=== PATIENT | male | born 1955 | race Caucasian/White ===

== ENCOUNTER 2022-01-04 00:23 | Inpatient (IN) | payer MEDICARE, OTHER ==
[~2022-01-04] VITALS: Ht 175.3 cm; Wt 72.6 kg
[2022-01-04] MEDS ORDERED: THIA100T74 PO (01:05)
[2022-01-04] MEDS ORDERED: LEVE500T20 PO (01:05)
[2022-01-04] MEDS ORDERED: FOLI1TAB94 PO (01:05)
[2022-01-04] MEDS ORDERED: HYDR50CA5 PO (01:05)
[2022-01-04] MEDS ORDERED: QUET50TA PO (01:05)
[2022-01-04] MEDS ORDERED: LISI40TA13 PO (01:05)
[2022-01-04] MEDS ORDERED: DISU250T7 PO (01:05)
[2022-01-04] MEDS ORDERED: MAGNESIUM HYDROXIDE 30 ML LIQUID UDC PO PRN (01:30)
[2022-01-04] MEDS ORDERED: MAG HYDROX/AL HYDROX/SIMETH 30 ML LIQUID UDC PO PRN (01:30)
--- NOTE | 2022-01-04 01:45 | NUR ---
Report given to Rebecca MCMULLEN ([facility]).
--- NOTE | 2022-01-04 02:00 | NUR ---
Patient transferred to [facility] room 145.
[2022-01-04] MEDS: LORAZEPAM 1 MG TABLET PO PRN ×2 (02:17→20:11)
[2022-01-04 02:56] VITALS: BP 122/81
--- NOTE | 2022-01-04 03:00 | NUR ---
GPS ADMISSION NOTE: Patient is a 66 year old male brought to [facility] by ambulance from [facility], on a 5150 for GD. Per hold, the patient was barricading himself in an apartment, intoxicated, covered in urine and living in deplorable conditions. Its reported that the patient was eating spoiled food with maggots and unable to verbalize a plan of care for himself. Upon face to face evaluation, the patient presents as unkept and disheveled. When talking to this television script writer, his speech was tangental and the patient had poor insight to the situation that brought him here. 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 There is no reported support system. 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 A patient Rights Handbook and Advisement were provided , along with a shower and orientation to the unit. Safety Stratiges are in place and continuing to monitor for increase of delusions and patient compliance. No acute distress noted at this time.
[2022-01-04 08:03] VITALS: BP 137/93
[2022-01-04] MEDS: NICOTINE 21 MG/24HR PATCH TD SCH (09:10)
--- NOTE | 2022-01-04 10:00 | NUR ---
called chief communications officer podiatry Dr. Mcnair @[phone] for consult.
[2022-01-04] MEDS: levETIRAcetam 500 MG TABLET PO SCH ×2 (12:23→17:00)
[2022-01-04] MEDS: LISINOPRIL 20 MG TABLET PO SCH (12:23)
[2022-01-04 16:08] VITALS: BP 141/91
[2022-01-04] MEDS: DIVALPROEX ER 500 MG TAB.SR.24H PO SCH (17:01)
[2022-01-04] MEDS: risperiDONE 1 MG TABLET PO SCH ×2 (17:02→20:11)
[2022-01-04] MEDS: QUETIAPINE FUMARATE 100 MG TABLET PO SCH (20:11)
[2022-01-04 21:01] VITALS: BP 143/89
--- NOTE | 2022-01-05 06:10 | NUR ---
Received the patient in the day room. Hyperverbal , tangental and having difficulty staying focused when being asked a question , or engaging in basic conversation. The patient was ambulating with a walker and gait is noted as unsteady. During the night, this patient was incontinent and soiled his bed. At that time, total assistance was needed. Sleep hours were 5.45 . Multiple requests were made during the night for snacks. This curriculum writer provided them d/t the fact the patient is underweight. Safety Stratiges are in place. The patient has difficulty with all of his ADLS.
[2022-01-05 07:37] LABS: BILIRUBIN,TOTAL 0.2 mg/dL (0.2-1.0); CREATININE 1.3 mg/dL (0.6-1.3); POTASSIUM 4.8 mmol/L (3.5-5.1); TOTAL PROTEIN, SERUM 6.8 g/dL (6.4-8.2)
[2022-01-05 07:49] VITALS: BP 114/81
[2022-01-05] MEDS: risperiDONE 1 MG TABLET PO SCH ×2 (09:51→20:56)
[2022-01-05] MEDS: THIAMINE HCL 100 MG TABLET PO SCH (09:51)
[2022-01-05] MEDS: LISINOPRIL 20 MG TABLET PO SCH (09:52)
[2022-01-05] MEDS: levETIRAcetam 500 MG TABLET PO SCH ×2 (09:52→16:50)
[2022-01-05] MEDS: NICOTINE 21 MG/24HR PATCH TD SCH (09:53)
[2022-01-05] MEDS: DIVALPROEX ER 500 MG TAB.SR.24H PO SCH (09:53)
[2022-01-05] MEDS: LORAZEPAM 1 MG TABLET PO PRN ×2 (10:25→17:14)
[2022-01-05] MEDS: FOLIC ACID 1 MG TABLET PO SCH (10:29)
[2022-01-05 16:13] VITALS: BP 143/82
--- NOTE | 2022-01-05 16:19 | NUR ---
Patient remains with delusional thoughts, making loose association statements, A&Ox2 with confusion noted. Needs constant reality checks. Med compliant. ambulating in hallway with FWW, encouraged to attend in group activity and participated , care rounding done .
[2022-01-05 19:49] VITALS: BP 139/80
[2022-01-05] MEDS: QUETIAPINE FUMARATE 100 MG TABLET PO SCH (20:56)
--- NOTE | 2022-01-06 06:15 | NUR ---
Received patient in the bed where he has spent the entire day. This sign writer hand encouraged the patient to get up and come to the day room, use the bathroom. ETC.. A FWW provided with standby assist. Patient ate snack and watched some TV. This sign writer hand was unable to engage in any meaningful conversation with this patient d/t his inability to control his tangental, rambling and nonsensical verbal speech content. All needs met and Safety Stratiges are in place. The patient has poor insight to his situation and requires assistance with all ADLs.
[2022-01-06 08:03] VITALS: BP 94/61
[2022-01-06] MEDS: LISINOPRIL 20 MG TABLET PO SCH (09:00)
[2022-01-06] MEDS: DIVALPROEX ER 500 MG TAB.SR.24H PO SCH (09:55)
[2022-01-06] MEDS: levETIRAcetam 500 MG TABLET PO SCH ×2 (09:58→16:38)
[2022-01-06] MEDS: FOLIC ACID 1 MG TABLET PO SCH (09:58)
[2022-01-06] MEDS: NICOTINE 21 MG/24HR PATCH TD SCH (09:58)
[2022-01-06] MEDS: THIAMINE HCL 100 MG TABLET PO SCH (09:58)
[2022-01-06] MEDS: risperiDONE 1 MG TABLET PO SCH (09:59)
--- NOTE | 2022-01-06 15:28 | NUR ---
Received patient is alert and oriented x3, isolative withdrawn stay in bed most of shift, uses urinal to void in bed. compliant with all po medication,poor insight and poor judgement. asking for books to read in bed ,denies any HI/SI.refused to attend in group activity and participated , will continue close monitoring.
[2022-01-06 16:09] VITALS: BP 108/78
[2022-01-06 19:54] VITALS: BP 122/83
[2022-01-06] MEDS: risperiDONE 2 MG TABLET PO SCH (20:10)
[2022-01-06] MEDS: QUETIAPINE FUMARATE 100 MG TABLET PO SCH (20:10)
[2022-01-06] MEDS ORDERED: risperiDONE 2 MG TABLET PO SCH ×2 (21:00)
[2022-01-06] MEDS: LORAZEPAM 1 MG TABLET PO PRN (21:18)
[2022-01-07] MEDS: ZOLPIDEM 5 MG TABLET PO PRN (00:48)
[2022-01-07 07:50] VITALS: BP 108/72
[2022-01-07 07:55] LABS: ALANINE AMINOTRANSFERASE 30 U/L (16-63); ALKALINE PHOSPHATASE 50 U/L (50-136); ASPARTATE AMINOTRANSFERASE < 5 U/L (15-37); BILIRUBIN,TOTAL 0.2 mg/dL (0.2-1.0); CARBON DIOXIDE 27 mmol/L (21-32); CHLORIDE 105 mmol/L (98-107); CREATININE 1.3 mg/dL (0.6-1.3); GLUCOSE 102 mg/dL (74-106); TOTAL PROTEIN, SERUM 7.2 g/dL (6.4-8.2); UREA NITROGEN, BLOOD 25 mg/dL (7-18)
[2022-01-07] MEDS: risperiDONE 2 MG TABLET PO SCH ×2 (08:52→20:28)
[2022-01-07] MEDS: NICOTINE 21 MG/24HR PATCH TD SCH (08:53)
[2022-01-07] MEDS: DIVALPROEX ER 500 MG TAB.SR.24H PO SCH (08:53)
[2022-01-07] MEDS: THIAMINE HCL 100 MG TABLET PO SCH (08:53)
[2022-01-07] MEDS: levETIRAcetam 500 MG TABLET PO SCH (08:54)
[2022-01-07] MEDS: FOLIC ACID 1 MG TABLET PO SCH (08:54)
[2022-01-07] MEDS: LISINOPRIL 20 MG TABLET PO SCH (08:54)
[2022-01-07] MEDS ORDERED: risperiDONE 2 MG TABLET PO SCH (09:00)
[2022-01-07] MEDS: LORAZEPAM 1 MG TABLET PO PRN (10:09)
[2022-01-07] MEDS: levETIRAcetam 250 MG TABLET PO SCH (16:09)
--- NOTE | 2022-01-07 16:24 | NUR ---
SHAVON Initial Discharge Note: Pt currently resides at [address] [place] [address] ([phone]). Pt states he wants to return to his apartment. Pt states he has a human services professional named Joie ([phone]) and a work counselor. SHAVON will contact Joie to discuss pt's discharge plan. SHAVON will continue to work with pt, family and MD to ensure a safe and proper discharge plan.
[2022-01-07 16:47] VITALS: BP 102/60
--- NOTE | 2022-01-07 18:47 | NUR ---
Patient is compliant with medication. Had shower today. Denies hallucinations. No behavioral issues identified. Will endorse to the next shift for continuity of care.
--- NOTE | 2022-01-07 18:48 | NUR ---
Safety measures maintained.
[2022-01-07 20:18] VITALS: BP 106/64
[2022-01-07] MEDS: QUETIAPINE FUMARATE 100 MG TABLET PO SCH (20:28)
[2022-01-08 07:30] VITALS: BP 122/78
[2022-01-08] MEDS: LISINOPRIL 20 MG TABLET PO SCH (09:15)
[2022-01-08] MEDS: DIVALPROEX ER 500 MG TAB.SR.24H PO SCH (09:15)
[2022-01-08] MEDS: risperiDONE 2 MG TABLET PO SCH ×2 (09:15→20:43)
[2022-01-08] MEDS: levETIRAcetam 250 MG TABLET PO SCH ×2 (09:16→17:10)
[2022-01-08] MEDS: NICOTINE 21 MG/24HR PATCH TD SCH (09:16)
[2022-01-08] MEDS: THIAMINE HCL 100 MG TABLET PO SCH (09:16)
[2022-01-08] MEDS: FOLIC ACID 1 MG TABLET PO SCH (09:16)
--- NOTE | 2022-01-08 09:55 | NUR ---
Patient had [address] Hearing today, and Casework Specialist Jeyson Monterroso approved request for GD only.
[2022-01-08 16:00] VITALS: BP 105/66
[2022-01-08 20:10] VITALS: BP 132/82
[2022-01-08] MEDS: QUETIAPINE FUMARATE 100 MG TABLET PO SCH (20:43)
[2022-01-08] MEDS: LORAZEPAM 1 MG TABLET PO PRN (21:55)
[2022-01-09 07:30] VITALS: BP 120/83
[2022-01-09] MEDS: levETIRAcetam 250 MG TABLET PO SCH ×2 (08:47→17:08)
[2022-01-09] MEDS: risperiDONE 2 MG TABLET PO SCH ×2 (08:47→20:36)
[2022-01-09] MEDS: DIVALPROEX ER 500 MG TAB.SR.24H PO SCH (08:47)
[2022-01-09] MEDS: LISINOPRIL 20 MG TABLET PO SCH (08:48)
[2022-01-09] MEDS: NICOTINE 21 MG/24HR PATCH TD SCH (08:48)
[2022-01-09] MEDS: FOLIC ACID 1 MG TABLET PO SCH (08:48)
[2022-01-09] MEDS: THIAMINE HCL 100 MG TABLET PO SCH (08:48)
--- NOTE | 2022-01-09 11:23 | NUR ---
Gps/Scada Engineer- Ambulates around, encouraged attending his group therapy, compliant with his routine am meds. Stayed in the dinning room during his meals.
[2022-01-09] MEDS: PROTEIN SUPPLEMENT (PROSTAT) 30 ML LIQUID PO SCH (12:15)
[2022-01-09 16:00] VITALS: BP 96/70
[2022-01-09 20:16] VITALS: BP 126/87
[2022-01-09] MEDS: QUETIAPINE FUMARATE 100 MG TABLET PO SCH (20:36)
[2022-01-09] MEDS: LORAZEPAM 1 MG TABLET PO PRN (22:49)
--- NOTE | 2022-01-09 22:50 | NUR ---
patient c/o constipation. mom 30 ml po given per patient requested.
--- NOTE | 2022-01-09 22:50 | NUR ---
patient c/o anxiety. ativan 1 mg po prn given.
--- NOTE | 2022-01-09 23:50 | NUR ---
patient is calm now. prn effective for anxiety.
--- NOTE | 2022-01-10 06:09 | NUR ---
GPS: REMAIN CALM AND COOPERATIVE WITH MEDS AND CARE. NO AGITATION NOTED. SLEPT 7.45 HRS THROUGH THE NIGHT. CONTINUE PLAN OF CARE.
[2022-01-10 07:30] VITALS: BP 103/71
[2022-01-10] MEDS: DIVALPROEX ER 500 MG TAB.SR.24H PO SCH (08:43)
[2022-01-10] MEDS: THIAMINE HCL 100 MG TABLET PO SCH (08:44)
[2022-01-10] MEDS: levETIRAcetam 250 MG TABLET PO SCH ×2 (08:44→16:52)
[2022-01-10] MEDS: FOLIC ACID 1 MG TABLET PO SCH (08:44)
[2022-01-10] MEDS: risperiDONE 2 MG TABLET PO SCH ×2 (08:44→20:54)
[2022-01-10] MEDS: PROTEIN SUPPLEMENT (PROSTAT) 30 ML LIQUID PO SCH (08:45)
[2022-01-10] MEDS: LISINOPRIL 20 MG TABLET PO SCH (08:45)
[2022-01-10] MEDS: NICOTINE 21 MG/24HR PATCH TD SCH (08:46)
[2022-01-10 16:00] VITALS: BP 114/78
--- NOTE | 2022-01-10 18:19 | NUR ---
Gps/Senior Examiner-Ambulates around with his front wheel walker. Complained of constipation, offered prune juice, refused, plan to take MOM tonight. Adequate fluid intake. Stayed in the activity room most of the afternoon, interacting with some of his peers
[2022-01-10 20:00] VITALS: BP 137/91
[2022-01-10] MEDS: QUETIAPINE FUMARATE 100 MG TABLET PO SCH (20:54)
[2022-01-10] MEDS: ZOLPIDEM 5 MG TABLET PO PRN (23:49)
[2022-01-11 00:07] VITALS: BP 128/84
--- NOTE | 2022-01-11 00:09 | NUR ---
GPS: patient c/o mild chest pain. v/s wnl. charge nurse made aware. continue monitoring for safety.
--- NOTE | 2022-01-11 04:54 | NUR ---
GPS: Remain calm and cooperative. no c/o chest pain or sob. resting in bed comfortably. continue monitoring for safety.
--- NOTE | 2022-01-11 06:19 | NUR ---
patient slept 7.30 hrs through the night.
[2022-01-11 07:30] VITALS: BP 110/77
[2022-01-11] MEDS: risperiDONE 2 MG TABLET PO SCH ×2 (08:51→20:22)
[2022-01-11] MEDS: levETIRAcetam 250 MG TABLET PO SCH ×2 (08:51→17:44)
[2022-01-11] MEDS: THIAMINE HCL 100 MG TABLET PO SCH (08:51)
[2022-01-11] MEDS: DIVALPROEX ER 500 MG TAB.SR.24H PO SCH (08:51)
[2022-01-11] MEDS: NICOTINE 21 MG/24HR PATCH TD SCH (08:52)
[2022-01-11] MEDS: PROTEIN SUPPLEMENT (PROSTAT) 30 ML LIQUID PO SCH (08:53)
[2022-01-11] MEDS: LISINOPRIL 20 MG TABLET PO SCH (08:53)
[2022-01-11] MEDS: FOLIC ACID 1 MG TABLET PO SCH (08:54)
[2022-01-11] MEDS: LORAZEPAM 1 MG TABLET PO PRN (09:30)
--- NOTE | 2022-01-11 12:59 | NUR ---
Gps/Vegetable Tester- Complained of feeling anxious, requested ativan 1 mg po and complained to Serge BODY AND FENDER MECHANIC APPRENTICE, having headache , unable to rate pain level would want to stay in bed and rest,, will continue to monitor complaints. Encouraged to participate in his group tx when feeling better. Ambulates around, uses own FWW ind.
[2022-01-11 16:00] VITALS: BP 97/64
[2022-01-11 20:00] VITALS: BP 127/85
[2022-01-11] MEDS: QUETIAPINE FUMARATE 100 MG TABLET PO SCH (20:22)
--- NOTE | 2022-01-12 05:47 | NUR ---
GPS: Remain calm and cooperative. no c/o chest pain or sob. resting in bed comfortably. continue monitoring for safety.
--- NOTE | 2022-01-12 06:29 | NUR ---
slept 6.45 hrs through the night.
[2022-01-12 07:30] VITALS: BP 115/72
[2022-01-12 08:00] LABS: HEMATOCRIT 36.5 % (36.7-47.1); MEAN CORPUSCULAR HEMOGLOBIN 32.2 uug (23.8-33.4); PLATELET COUNT (AUTO) 252 K/uL (152-348)
[2022-01-12 08:26] LABS: THYROID STIMULATING HORMONE 4.853 mIU/mL (0.358-3.740)
[2022-01-12 08:30] LABS: BILIRUBIN,TOTAL 0.2 mg/dL (0.2-1.0); CREATININE 1.3 mg/dL (0.6-1.3); MAGNESIUM 1.9 mg/dL (1.8-2.4); PHOSPHOROUS 4.2 mg/dL (2.5-4.9); POTASSIUM 5.2 mmol/L (3.5-5.1); TOTAL PROTEIN, SERUM 7.1 g/dL (6.4-8.2)
[2022-01-12] MEDS: levETIRAcetam 250 MG TABLET PO SCH ×2 (08:38→17:40)
[2022-01-12] MEDS: DIVALPROEX ER 500 MG TAB.SR.24H PO SCH (08:38)
[2022-01-12] MEDS: FOLIC ACID 1 MG TABLET PO SCH (08:38)
[2022-01-12] MEDS: risperiDONE 2 MG TABLET PO SCH ×2 (08:38→20:56)
[2022-01-12] MEDS: THIAMINE HCL 100 MG TABLET PO SCH (08:38)
[2022-01-12] MEDS: PROTEIN SUPPLEMENT (PROSTAT) 30 ML LIQUID PO SCH (08:39)
[2022-01-12] MEDS: NICOTINE 21 MG/24HR PATCH TD SCH (08:39)
[2022-01-12] MEDS: LORAZEPAM 1 MG TABLET PO PRN ×2 (08:50→22:58)
[2022-01-12] MEDS: LISINOPRIL 20 MG TABLET PO SCH (08:54)
[2022-01-12] MEDS ORDERED: SODIUM POLYSTYRENE SULFONATE 15 G/60 ML LIQUID UDC PO ONE (11:00)
--- NOTE | 2022-01-12 11:30 | NUR ---
Gps/Rural Carrier Associate- K+ 5.2, order received from Dr Gorman , kayexalate po was admnistered as ordered. Patient walks around using own FWW, encouraged to participate in his group therapy making his simple needs known to the staff.
[2022-01-12 16:23] VITALS: BP 116/74
[2022-01-12 19:49] VITALS: BP 118/70
--- NOTE | 2022-01-12 20:30 | NUR ---
RECEIVED PATIENT IN HIS ROOM IN BED. HE IS NOTED AWAKE A/O X 3. HE APPEARS DEPRESSED. HE IS NOTED ISOLATIVE AND WITHDRAWN; HOWEVER, HE DENIED SI/HI/VH/AH. HE IS ABLE TO VERBALLY CFS. HE IS REASSURED FOR HIS SAFETY. SAFETY AND FALL PRECAUTIONS ARE IN PLACE. V/S STABLE. PATIENT WAS GIVEN PO FLUIDS AND SNACKS. WILL CONTINUE TO MONITOR.
[2022-01-12] MEDS: QUETIAPINE FUMARATE 100 MG TABLET PO SCH (20:56)
[2022-01-13 07:56] VITALS: BP 97/65
[2022-01-13] MEDS: PROTEIN SUPPLEMENT (PROSTAT) 30 ML LIQUID PO SCH (09:00)
[2022-01-13] MEDS: DIVALPROEX ER 500 MG TAB.SR.24H PO SCH (10:44)
[2022-01-13] MEDS: levETIRAcetam 250 MG TABLET PO SCH ×2 (10:44→17:13)
[2022-01-13] MEDS: FOLIC ACID 1 MG TABLET PO SCH (10:44)
[2022-01-13] MEDS: LISINOPRIL 20 MG TABLET PO SCH (10:45)
[2022-01-13] MEDS: risperiDONE 2 MG TABLET PO SCH ×2 (10:45→20:58)
[2022-01-13] MEDS: LORAZEPAM 1 MG TABLET PO PRN ×2 (10:46→21:34)
[2022-01-13] MEDS: NICOTINE 21 MG/24HR PATCH TD SCH (10:46)
[2022-01-13] MEDS: THIAMINE HCL 100 MG TABLET PO SCH (10:46)
--- NOTE | 2022-01-13 14:12 | NUR ---
SHAVON Discharge Update: SHAVON spoke with Joie ([phone]) from [facility] who contacted this clinical writer to inform her that she is the case management specialist for the pt and they will continue providing care for the pt upon discharge. Joie stated that pt has a father and sister but they are both not involved in the patients health due to their poor health. SHAVON informed Joie that pt will continue care at [facility] upon discharge. Joie is aware and agreeable for pt to continue care at a senior care prior to returning home. SHAVON stated she will inform joie of pt's discharge date details once available.
[2022-01-13 16:10] VITALS: BP 116/77
[2022-01-13 20:02] VITALS: BP 106/52
--- NOTE | 2022-01-13 20:30 | NUR ---
received patient in his room in bed sleeping but easily arousable. he is noted A/O x 3. he is calm and pleasant upon approached. patient stated, "I am very happy I may go home tomorrow because my community mental health social worker talked to the community mental health social worker ans something good came out". patient noted goal oriented. he denied SI/HI/VH/AH. he is able to verbally CFS. he is reassured for his safety, safety and fall precautions are in place. V/S stable patient in no distress. he was given PO fluids and snacks. will continue to monitor.
[2022-01-13] MEDS: QUETIAPINE FUMARATE 100 MG TABLET PO SCH (20:58)
[2022-01-14] MEDS: ACETAMINOPHEN 325 MG TABLET PO PRN (02:36)
--- NOTE | 2022-01-14 06:10 | NUR ---
PATIENT SLEPT FOR APPROX 8 HRS THROUGH THE NIGHT. HE HAD A SHOWER EARLIER. HE STATED, "I AM HOPING TO GET DISCHARGED TODAY". PATIENT IS COMPLIANT WITH MEDICATION REGIMENT DIET AND PLAN OF CARE. WILL CONTINUE TO MONITOR.
[2022-01-14 08:05] VITALS: BP 117/78
[2022-01-14] MEDS: LISINOPRIL 20 MG TABLET PO SCH (09:43)
[2022-01-14] MEDS: THIAMINE HCL 100 MG TABLET PO SCH (09:43)
[2022-01-14] MEDS: PROTEIN SUPPLEMENT (PROSTAT) 30 ML LIQUID PO SCH (09:44)
[2022-01-14] MEDS: levETIRAcetam 250 MG TABLET PO SCH ×2 (09:44→17:25)
[2022-01-14] MEDS: LORAZEPAM 1 MG TABLET PO PRN ×2 (09:44→17:29)
[2022-01-14] MEDS: DIVALPROEX ER 500 MG TAB.SR.24H PO SCH (09:44)
[2022-01-14] MEDS: risperiDONE 2 MG TABLET PO SCH ×2 (09:44→20:13)
[2022-01-14] MEDS: FOLIC ACID 1 MG TABLET PO SCH (09:44)
[2022-01-14] MEDS: NICOTINE 21 MG/24HR PATCH TD SCH (09:44)
--- NOTE | 2022-01-14 09:59 | NUR ---
GPS: PT ALERT AND VERBALLY RESPONSIVE. DENIES SI/HI. PT ALERT ORIENTED 2-3. PT COMPLIANT WITH MEDS. REQUESTED FOR ATIVAN PO FOR ANXIETY, GIVEN AND TOLERATED WELL. PT TALKED ABOUT EXCITED TO BE DISCHARGE AND ALSO MENTIONED ABOUT HIM FLYING A PLANE BEFORE AND HIS BROTHER INTO [place]. PT ENCOURAGED TO PARTICIPATE WITH GROUP THERAPY, SAW PT WENT OUT OF BED AMBULATING WITH FRONT WHEEL WALKER AND GOING TO THE PATIO FOR OUTDOOR ACTIVITY. HE MENTIONED HE TOOK METH AND ADDED TO HIS MEDS WHICH HE KNEW AFTER THAT IT WAS NOT A GOOD COMBINATION. WILL MONITOR FOR SAFETY.
[2022-01-14 15:10] VITALS: BP 104/59
--- NOTE | 2022-01-14 17:56 | NUR ---
GPS: PT DEPRESSED AND ANXIOUS DURING THE LATE AFTERNOON AND REQUESTED FOR AN ATIVAN GIVEN AND TOLERATED WELL. PT STATED "THERE'S NOTHING TO WATCH ON TV RIGHT NOW". PT SEEN GOING TO THE ACTIVITY ROOM AND WENT OUT OF THE PATIO FOR GROUP ACTIVITIES. DENIES PAIN OR DISCOMFORT. ABLE TO MAKE NEEDS KNOWN. DENIES SI/HI.
[2022-01-14] MEDS: QUETIAPINE FUMARATE 100 MG TABLET PO SCH (20:13)
[2022-01-14 20:16] VITALS: BP 107/68
--- NOTE | 2022-01-14 22:48 | NUR ---
RECEIVED PATIENT IN HIS ROOM IN BED. HE IS NOTED AWAKE A/O X 3. HE IS CALM AND PLEASANT UPON APPROACHED. PATIENT IS AWARE OF HIS DISCHARGED IN 2 DAYS. HE DENIED SI/HI//AH. HE IS ABLE TO VERBALLY CFS. HE IS REASSURED FOR HIS SAFETY. SAFETY AND FALL PRECAUTIONS ARE IN PLACE. HIS V/S ARE STABLE. HE IS IN NO DISTRESS. HE WAS GIVEN PO FLUIDS AND SNACKS. WILL CONTINUE TO MONITOR.
[2022-01-15 07:30] VITALS: BP 114/81
[2022-01-15 08:16] LABS: HEMATOCRIT 33.3 % (36.7-47.1); MEAN CORPUSCULAR HEMOGLOBIN 32.7 uug (23.8-33.4); MEAN CORPUSCULAR VOLUME 96.4 fL (73.0-96.2); PLATELET COUNT (AUTO) 216 K/uL (152-348)
[2022-01-15] MEDS: levETIRAcetam 250 MG TABLET PO SCH ×2 (08:57→17:36)
[2022-01-15] MEDS: THIAMINE HCL 100 MG TABLET PO SCH (08:57)
[2022-01-15] MEDS: risperiDONE 2 MG TABLET PO SCH ×2 (08:57→20:17)
[2022-01-15] MEDS: DIVALPROEX ER 500 MG TAB.SR.24H PO SCH (08:57)
[2022-01-15] MEDS: FOLIC ACID 1 MG TABLET PO SCH (08:58)
[2022-01-15] MEDS: NICOTINE 21 MG/24HR PATCH TD SCH (08:58)
[2022-01-15] MEDS: PROTEIN SUPPLEMENT (PROSTAT) 30 ML LIQUID PO SCH (08:58)
[2022-01-15] MEDS: LISINOPRIL 20 MG TABLET PO SCH (08:58)
[2022-01-15 09:04] LABS: CREATININE 1.4 mg/dL (0.6-1.3); MAGNESIUM 1.8 mg/dL (1.8-2.4); PHOSPHOROUS 3.8 mg/dL (2.5-4.9)
[2022-01-15] MEDS: LORAZEPAM 1 MG TABLET PO PRN ×2 (09:28→15:19)
[2022-01-15 11:35] LABS: EOSINOPHILS % (MANUAL) 4 % (0-8); LYMPHOCYTES % (MANUAL) 42 % (20-40); MONOCYTES % (MANUAL) 14 % (2-10); NEUTROPHILS % (MANUAL) 40 % (42-75)
[2022-01-15 16:00] VITALS: BP 113/79
--- NOTE | 2022-01-15 16:48 | NUR ---
GPS: PT SPENT MOST OF THE TIME IN HIS ROOM, ISOLATIVE, LIKES READING BOOK. ENCOURAGED TO ATTEND GROUP ACTIVITIES. GOES OUT OF ROOM COMPLAINT OF ANXIETY. OFFERED ATIVAN AND TOLERATED WELL. ABLE TO MAKE NEEDS KNOWN. NO AGITATION NOTED. WILL MONITOR PT FOR SAFETY. COMPLIANT WITH CARE AND MEDS.
[2022-01-15 20:00] VITALS: BP 119/81
[2022-01-15] MEDS: QUETIAPINE FUMARATE 100 MG TABLET PO SCH (20:17)
[2022-01-15] MEDS: ACETAMINOPHEN 325 MG TABLET PO PRN (20:18)
[2022-01-16] MEDS: LORAZEPAM 1 MG TABLET PO PRN ×3 (01:05→14:47)
[2022-01-16 07:50] VITALS: BP 116/76
[2022-01-16] MEDS: risperiDONE 2 MG TABLET PO SCH ×2 (08:24→20:18)
[2022-01-16] MEDS: LISINOPRIL 20 MG TABLET PO SCH (08:24)
[2022-01-16] MEDS: NICOTINE 21 MG/24HR PATCH TD SCH (08:25)
[2022-01-16] MEDS: THIAMINE HCL 100 MG TABLET PO SCH (08:25)
[2022-01-16] MEDS: FOLIC ACID 1 MG TABLET PO SCH (08:25)
[2022-01-16] MEDS: PROTEIN SUPPLEMENT (PROSTAT) 30 ML LIQUID PO SCH (08:25)
[2022-01-16] MEDS: DIVALPROEX ER 500 MG TAB.SR.24H PO SCH (08:25)
[2022-01-16] MEDS: levETIRAcetam 250 MG TABLET PO SCH ×2 (08:25→17:56)
[2022-01-16] MEDS: ACETAMINOPHEN 325 MG TABLET PO PRN (08:30)
--- NOTE | 2022-01-16 14:50 | NUR ---
GPS: PT REQUESTED FOR ATIVAN FOR ANXIETY. PER PT, HE'S NOT USED TO A PLACE LIKE THIS, HE'S LAID BACK TYPE OF EL[place] AND LIKES QUIET PLACE. PT TOLERATED WELL THE MEDICATION.
[2022-01-16 16:25] VITALS: BP 118/76
[2022-01-16 20:12] VITALS: BP 100/60
[2022-01-16] MEDS: QUETIAPINE FUMARATE 100 MG TABLET PO SCH (20:18)
[2022-01-17] MEDS: LORAZEPAM 1 MG TABLET PO PRN (02:17)
--- NOTE | 2022-01-17 04:33 | NUR ---
Received patient at the start of the shift in bed. This copywriter encouraged the patient to get up and come to the Day room for a snack. At that time the patient refused. Later in the night , this patient came out of his room and asked for Ativan, went to the day room and ate 2 sandwiches, 4 puddings and milk. Besides that, it is documented that the patient ate 100% of his meals during the day. The patient has poor insight to his situation and is withdrawn. Spends most of the time in his bed. Safety Stratiges are in place and ADLs are encouraged.Possible discharge planned for later today.
[2022-01-17 07:30] VITALS: BP 117/80
[2022-01-17 07:43] LABS: CREATININE 1.5 mg/dL (0.6-1.3); POTASSIUM 4.9 mmol/L (3.5-5.1)
[2022-01-17] MEDS: levETIRAcetam 250 MG TABLET PO SCH (08:38)
[2022-01-17] MEDS: risperiDONE 2 MG TABLET PO SCH (08:38)
[2022-01-17] MEDS: DIVALPROEX ER 500 MG TAB.SR.24H PO SCH (08:38)
[2022-01-17] MEDS: THIAMINE HCL 100 MG TABLET PO SCH (08:39)
[2022-01-17 08:40] VITALS: BP 117/80
[2022-01-17] MEDS: LISINOPRIL 20 MG TABLET PO SCH (08:40)
[2022-01-17] MEDS: PROTEIN SUPPLEMENT (PROSTAT) 30 ML LIQUID PO SCH (08:41)
[2022-01-17] MEDS: NICOTINE 21 MG/24HR PATCH TD SCH (08:41)
[2022-01-17] MEDS: FOLIC ACID 1 MG TABLET PO SCH (08:42)
--- NOTE | 2022-01-17 09:01 | NUR ---
SHAVON Discharge Note: Pt will be discharged to [facility] located at [address] [place] [phone] ([phone]) via Ambulance transportation at 11AM. SHAVON spoke with admin coordinator, Megan at the facility who states they are ready to accept the patient today. Pt is aware and agreeable with discharge plan. SHAVON spoke with pts binder caser, Tricia at [facility] ([phone] who stated they are aware and will continue to provide support for the pt. Pt stated to SHAVON to not speak to any family. Pt is alert and oriented x4, is unable to plan for self-care at this time. However, pt is willing to accept care at SNF. Pt denies any suicidal or homicidal ideation. Pt will follow-up at the facility with Psychiatrist, Dr. Cardoza ([phone]) and Wardrobe Stylist, Dr. Lopez. Pt presents with calm mood and congruent affect. PHARMACY: [facility] ([phone]) [address] [place] [address].
--- NOTE | 2022-01-17 11:31 | NUR ---
Discharged to [facility] via Ambulance transportation at 11AM.patient is alert and oriented x4 vital sign stable ,able to ambulating with FWW,all personal belonging . Pt will follow-up at the facility with Psychiatrist, Dr. Cardoza ([phone]) and Jigger Crown Pouncing Machine Operator, Dr. Lopez. Pt presents with calm mood and congruent affect. PHARMACY: [facility] ([phone]) [address] [facility] [address].
== END 2022-01-17 11:45 | DRG 885 ==
LOC: ER 00:47 → GPS 00:59
PROVIDERS: ADMIT Psychiatry & Neurology Psychiatry; ATTEND Internal Medicine
DX: F25.9 Schizoaffective disorder, unspecified (principal); N17.0 Acute kidney failure with tubular necrosis; G40.909 Epilepsy, unspecified, not intractable, without status epilepticus; E87.5 Hyperkalemia; I10 Essential (primary) hypertension; F29 Unspecified psychosis not due to a substance or known physiological condition; F15.10 Other stimulant abuse, uncomplicated; Z86.19 Personal history of other infectious and parasitic diseases; F31.9 Bipolar disorder, unspecified; Z20.822 Contact with and (suspected) exposure to COVID-19
CPT/HCPCS: 36415; 70030-TC; 80164; 83735; 84100; 84443; 85025; A4663

== ENCOUNTER 2022-04-04 05:04 | Inpatient (IN) | payer MEDICARE, OTHER ==
[~2022-04-04] VITALS: Ht 177.8 cm; Wt 79.8 kg
[~2022-04-04 05:04] MED LIST: FOLI1TAB94 PO; LEVE500T20 PO; LISI40TA13 PO; THIA100T74 PO
[2022-04-04 05:51] LABS: HEMATOCRIT 37.8 % (36.7-47.1); MEAN CORPUSCULAR HEMOGLOBIN 32.8 uug (23.8-33.4); MEAN CORPUSCULAR VOLUME 95.3 fL (73.0-96.2); PLATELET COUNT (AUTO) 122 K/uL (152-348)
[2022-04-04 05:57] LABS: ALANINE AMINOTRANSFERASE 56 U/L (16-63); ALKALINE PHOSPHATASE 43 U/L (50-136); ASPARTATE AMINOTRANSFERASE 57 U/L (15-37); BILIRUBIN,DIRECT 0.1 mg/dL (0.0-0.2); BILIRUBIN,TOTAL 0.2 mg/dL (0.2-1.0); CARBON DIOXIDE 27 mmol/L (21-32); CHLORIDE 102 mmol/L (98-107); GLUCOSE 98 mg/dL (74-106); POTASSIUM 3.6 mmol/L (3.5-5.1); TOTAL PROTEIN, SERUM 6.5 g/dL (6.4-8.2); UREA NITROGEN, BLOOD 21 mg/dL (7-18)
[2022-04-04 06:12] LABS: ACETAMINOPHEN < 10.0 ug/mL (10-30)
[2022-04-04 06:14] LABS: ETHANOL < 3 MG/DL (0-0)
[2022-04-04 09:30] VITALS: BP 126/92
[2022-04-04] MEDS ORDERED: MAG HYDROX/AL HYDROX/SIMETH 30 ML LIQUID UDC PO PRN (09:45)
[2022-04-04 17:07] VITALS: BP 154/94
[2022-04-04] MEDS: LORAZEPAM 0.5 MG TABLET PO PRN (19:55)
[2022-04-04] MEDS: ACETAMINOPHEN 325 MG TABLET PO PRN (19:55)
[2022-04-04] MEDS: NICOTINE 21 MG/24HR PATCH TD SCH (20:31)
[2022-04-04] MEDS: MAGNESIUM HYDROXIDE 30 ML LIQUID UDC PO PRN (20:56)
[2022-04-04] MEDS ORDERED: hydrALAZINE HCL 10 MG TABLET PO ONE (21:45)
[2022-04-04 22:39] VITALS: BP 157/93
[2022-04-05] MEDS: ZOLPIDEM 5 MG TABLET PO PRN (02:42)
[2022-04-05] MEDS: LORAZEPAM 0.5 MG TABLET PO PRN ×5 (02:49→22:43)
[2022-04-05 07:42] VITALS: BP 161/106
[2022-04-05 08:12] LABS: BILIRUBIN,TOTAL 0.3 mg/dL (0.2-1.0); CREATININE 1.1 mg/dL (0.6-1.3); POTASSIUM 3.9 mmol/L (3.5-5.1); TOTAL PROTEIN, SERUM 7.1 g/dL (6.4-8.2)
[2022-04-05] MEDS: LISINOPRIL 20 MG TABLET PO SCH (08:12)
[2022-04-05] MEDS: FOLIC ACID 1 MG TABLET PO SCH (08:13)
[2022-04-05] MEDS: NICOTINE 21 MG/24HR PATCH TD SCH (08:13)
[2022-04-05] MEDS: THIAMINE HCL 100 MG TABLET PO SCH (08:13)
[2022-04-05] MEDS ORDERED: NICOTINE 14 MG/24HR PATCH TD SCH (09:00)
[2022-04-05] MEDS: levETIRAcetam 500 MG TABLET PO SCH ×2 (10:36→20:53)
[2022-04-05] MEDS: ACETAMINOPHEN 325 MG TABLET PO PRN ×2 (13:45→22:42)
[2022-04-05] MEDS: hydrALAZINE HCL 25 MG TABLET PO PRN ×2 (15:14→22:43)
[2022-04-05 16:19] VITALS: BP 169/109
[2022-04-05 20:00] VITALS: BP 148/105
[2022-04-05] MEDS: MAGNESIUM HYDROXIDE 30 ML LIQUID UDC PO PRN (20:53)
[2022-04-05] MEDS ORDERED: risperiDONE 0.5 MG TABLET PO SCH (21:00)
[2022-04-06] MEDS: ZOLPIDEM 5 MG TABLET PO PRN (01:40)
[2022-04-06 01:50] VITALS: BP 143/95
[2022-04-06 08:26] VITALS: BP 146/101
[2022-04-06] MEDS: levETIRAcetam 500 MG TABLET PO SCH ×2 (08:34→20:25)
[2022-04-06] MEDS: LISINOPRIL 20 MG TABLET PO SCH (08:34)
[2022-04-06] MEDS: THIAMINE HCL 100 MG TABLET PO SCH (08:34)
[2022-04-06] MEDS: FOLIC ACID 1 MG TABLET PO SCH (08:34)
[2022-04-06] MEDS: NICOTINE 21 MG/24HR PATCH TD SCH (08:35)
[2022-04-06] MEDS: LORAZEPAM 0.5 MG TABLET PO PRN ×3 (08:48→20:25)
[2022-04-06] MEDS: risperiDONE 0.5 MG TABLET PO SCH ×3 (11:07→20:32)
[2022-04-06 16:06] VITALS: BP 126/90
[2022-04-06 20:00] VITALS: BP 158/109
[2022-04-06] MEDS: hydrALAZINE HCL 25 MG TABLET PO PRN (20:27)
[2022-04-07] MEDS: ZOLPIDEM 5 MG TABLET PO PRN (00:05)
[2022-04-07] MEDS: hydrALAZINE HCL 25 MG TABLET PO PRN (05:27)
[2022-04-07] MEDS: LORAZEPAM 0.5 MG TABLET PO PRN ×4 (05:27→23:08)
[2022-04-07 07:44] VITALS: BP 170/107
[2022-04-07] MEDS: NICOTINE 21 MG/24HR PATCH TD SCH (08:43)
[2022-04-07] MEDS: FOLIC ACID 1 MG TABLET PO SCH (08:43)
[2022-04-07] MEDS: LISINOPRIL 20 MG TABLET PO SCH (08:44)
[2022-04-07] MEDS: risperiDONE 0.5 MG TABLET PO SCH ×3 (08:44→16:20)
[2022-04-07] MEDS: THIAMINE HCL 100 MG TABLET PO SCH (08:44)
[2022-04-07] MEDS: levETIRAcetam 500 MG TABLET PO SCH ×2 (08:44→20:33)
[2022-04-07 15:46] VITALS: BP 149/109
[2022-04-07 20:27] VITALS: BP 154/96
[2022-04-07] MEDS: GABAPENTIN 100 MG CAPSULE PO SCH (20:32)
[2022-04-07] MEDS: TEMAZEPAM 7.5 MG CAPSULE PO PRN (22:15)
[2022-04-08 07:33] VITALS: BP 149/98
[2022-04-08] MEDS: THIAMINE HCL 100 MG TABLET PO SCH (08:35)
[2022-04-08] MEDS: FOLIC ACID 1 MG TABLET PO SCH (08:35)
[2022-04-08] MEDS: risperiDONE 0.5 MG TABLET PO SCH ×3 (08:35→16:56)
[2022-04-08] MEDS: LISINOPRIL 20 MG TABLET PO SCH (08:36)
[2022-04-08] MEDS: LORAZEPAM 0.5 MG TABLET PO PRN ×4 (08:36→22:48)
[2022-04-08] MEDS: NICOTINE 21 MG/24HR PATCH TD SCH (08:36)
[2022-04-08] MEDS: levETIRAcetam 500 MG TABLET PO SCH ×2 (08:36→20:24)
[2022-04-08 11:50] LABS: *BILIRUBIN,URIN NEGATIVE (NEGATIVE); *BLOOD, URINE NEGATIVE (NEGATIVE); *CLARITY,URINE CLEAR (CLEAR); *COLOR,URINE YELLOW (YELLOW); *KETONES,URINE NEGATIVE (NEGATIVE); *UROBILINOGEN,URINE 0.2 E.U./dl (NORMAL); LEUKOCYTE ESTERASE ,URINE NEGATIVE (NEGATIVE); NITRITE, URINE NEGATIVE (NEGATIVE); UGLUCOSE NEGATIVE (NEGATIVE)
[2022-04-08 15:56] VITALS: BP 143/91
[2022-04-08 20:08] VITALS: BP 134/88
[2022-04-08] MEDS: ACETAMINOPHEN 325 MG TABLET PO PRN (20:23)
[2022-04-08] MEDS: TEMAZEPAM 7.5 MG CAPSULE PO PRN (20:23)
[2022-04-08] MEDS: GABAPENTIN 100 MG CAPSULE PO SCH (20:23)
[2022-04-09] MEDS: LORAZEPAM 0.5 MG TABLET PO PRN ×3 (04:06→22:36)
[2022-04-09 07:30] VITALS: BP 160/105
[2022-04-09] MEDS: risperiDONE 0.5 MG TABLET PO SCH ×3 (08:57→16:40)
[2022-04-09] MEDS: FOLIC ACID 1 MG TABLET PO SCH (08:57)
[2022-04-09] MEDS: LISINOPRIL 20 MG TABLET PO SCH (08:57)
[2022-04-09] MEDS: THIAMINE HCL 100 MG TABLET PO SCH (08:57)
[2022-04-09] MEDS: NICOTINE 21 MG/24HR PATCH TD SCH (08:58)
[2022-04-09] MEDS: levETIRAcetam 500 MG TABLET PO SCH ×2 (08:58→20:22)
[2022-04-09 17:07] VITALS: BP 142/101
[2022-04-09] MEDS: GABAPENTIN 100 MG CAPSULE PO SCH (20:22)
[2022-04-09 20:48] VITALS: BP 146/96
[2022-04-09] MEDS: TEMAZEPAM 7.5 MG CAPSULE PO PRN (21:48)
[2022-04-10] MEDS: LORAZEPAM 0.5 MG TABLET PO PRN ×3 (03:32→23:19)
[2022-04-10 07:38] VITALS: BP 139/91
[2022-04-10] MEDS: FOLIC ACID 1 MG TABLET PO SCH (08:57)
[2022-04-10] MEDS: levETIRAcetam 500 MG TABLET PO SCH ×2 (08:57→20:28)
[2022-04-10] MEDS: LISINOPRIL 20 MG TABLET PO SCH (08:58)
[2022-04-10] MEDS: risperiDONE 0.5 MG TABLET PO SCH ×3 (08:58→17:59)
[2022-04-10] MEDS: THIAMINE HCL 100 MG TABLET PO SCH (08:58)
[2022-04-10] MEDS: NICOTINE 21 MG/24HR PATCH TD SCH (08:58)
[2022-04-10 16:00] VITALS: BP 126/93
[2022-04-10] MEDS: GABAPENTIN 100 MG CAPSULE PO SCH (20:27)
[2022-04-10 20:41] VITALS: BP 131/86
[2022-04-10] MEDS: TEMAZEPAM 7.5 MG CAPSULE PO PRN (22:35)
[2022-04-11 07:41] VITALS: BP 111/70
[2022-04-11] MEDS: levETIRAcetam 500 MG TABLET PO SCH ×2 (09:15→20:34)
[2022-04-11] MEDS: FOLIC ACID 1 MG TABLET PO SCH (09:15)
[2022-04-11] MEDS: GABAPENTIN 100 MG CAPSULE PO SCH ×2 (09:16→16:53)
[2022-04-11] MEDS: THIAMINE HCL 100 MG TABLET PO SCH (09:17)
[2022-04-11] MEDS: LISINOPRIL 20 MG TABLET PO SCH (09:17)
[2022-04-11] MEDS: risperiDONE 0.5 MG TABLET PO SCH ×3 (09:17→16:53)
[2022-04-11] MEDS: NICOTINE 21 MG/24HR PATCH TD SCH (09:18)
[2022-04-11 16:58] VITALS: BP 104/76
[2022-04-11 19:48] VITALS: BP 129/82
[2022-04-11] MEDS: GABAPENTIN 300 MG CAPSULE PO SCH (20:34)
[2022-04-11] MEDS ORDERED: GABAPENTIN 100 MG CAPSULE PO SCH (21:00)
[2022-04-11] MEDS: TEMAZEPAM 7.5 MG CAPSULE PO PRN (23:34)
[2022-04-12] MEDS: LORAZEPAM 0.5 MG TABLET PO PRN ×4 (00:19→17:16)
[2022-04-12 07:41] VITALS: BP 117/86
[2022-04-12] MEDS: risperiDONE 0.5 MG TABLET PO SCH ×3 (08:37→17:16)
[2022-04-12] MEDS: FOLIC ACID 1 MG TABLET PO SCH (08:37)
[2022-04-12] MEDS: NICOTINE 21 MG/24HR PATCH TD SCH (08:39)
[2022-04-12] MEDS: LISINOPRIL 20 MG TABLET PO SCH (08:39)
[2022-04-12] MEDS: levETIRAcetam 500 MG TABLET PO SCH ×2 (08:39→20:18)
[2022-04-12] MEDS: THIAMINE HCL 100 MG TABLET PO SCH (08:40)
[2022-04-12] MEDS: GABAPENTIN 100 MG CAPSULE PO SCH ×2 (08:41→17:16)
[2022-04-12 16:26] VITALS: BP 92/65
[2022-04-12] MEDS: ARGININE/GLUTAMINE/CALCIUM BMB 1 EACH POWD.PACK PO SCH (17:43)
[2022-04-12] MEDS: GABAPENTIN 300 MG CAPSULE PO SCH (20:18)
[2022-04-13] MEDS: ACETAMINOPHEN 325 MG TABLET PO PRN (02:45)
[2022-04-13] MEDS: TEMAZEPAM 7.5 MG CAPSULE PO PRN (02:45)
[2022-04-13 07:51] VITALS: BP 121/84
[2022-04-13] MEDS: GABAPENTIN 100 MG CAPSULE PO SCH ×2 (08:42→17:09)
[2022-04-13] MEDS: FOLIC ACID 1 MG TABLET PO SCH (08:42)
[2022-04-13] MEDS: LISINOPRIL 20 MG TABLET PO SCH (08:43)
[2022-04-13] MEDS: THIAMINE HCL 100 MG TABLET PO SCH (08:43)
[2022-04-13] MEDS: LORAZEPAM 0.5 MG TABLET PO PRN ×3 (08:43→17:09)
[2022-04-13] MEDS: risperiDONE 0.5 MG TABLET PO SCH ×3 (08:43→17:09)
[2022-04-13] MEDS: NICOTINE 21 MG/24HR PATCH TD SCH (08:43)
[2022-04-13] MEDS: levETIRAcetam 500 MG TABLET PO SCH ×2 (08:43→20:08)
[2022-04-13] MEDS: ARGININE/GLUTAMINE/CALCIUM BMB 1 EACH POWD.PACK PO SCH ×2 (08:44→16:21)
[2022-04-13 16:01] VITALS: BP 105/73
[2022-04-13 20:05] VITALS: BP 90/53
[2022-04-13] MEDS: GABAPENTIN 300 MG CAPSULE PO SCH (20:07)
[2022-04-14 08:05] VITALS: BP 105/72
[2022-04-14] MEDS: levETIRAcetam 500 MG TABLET PO SCH ×2 (08:41→20:24)
[2022-04-14] MEDS: GABAPENTIN 100 MG CAPSULE PO SCH ×2 (08:42→16:53)
[2022-04-14] MEDS: NICOTINE 21 MG/24HR PATCH TD SCH (08:42)
[2022-04-14] MEDS: risperiDONE 0.5 MG TABLET PO SCH ×3 (08:42→16:53)
[2022-04-14] MEDS: THIAMINE HCL 100 MG TABLET PO SCH (08:42)
[2022-04-14] MEDS: LISINOPRIL 20 MG TABLET PO SCH (08:42)
[2022-04-14] MEDS: FOLIC ACID 1 MG TABLET PO SCH (08:42)
[2022-04-14] MEDS: ARGININE/GLUTAMINE/CALCIUM BMB 1 EACH POWD.PACK PO SCH ×2 (08:42→16:53)
[2022-04-14 16:09] VITALS: BP 116/82
[2022-04-14] MEDS: LORAZEPAM 0.5 MG TABLET PO PRN (20:24)
[2022-04-14] MEDS: GABAPENTIN 300 MG CAPSULE PO SCH (20:24)
[2022-04-14 20:54] VITALS: BP 113/75
[2022-04-15] MEDS: TEMAZEPAM 7.5 MG CAPSULE PO PRN ×2 (00:13→21:23)
[2022-04-15 07:30] VITALS: BP 119/81
[2022-04-15] MEDS: levETIRAcetam 500 MG TABLET PO SCH ×2 (08:56→20:23)
[2022-04-15] MEDS: NICOTINE 21 MG/24HR PATCH TD SCH (08:56)
[2022-04-15] MEDS: GABAPENTIN 100 MG CAPSULE PO SCH ×2 (08:57→16:57)
[2022-04-15] MEDS: ARGININE/GLUTAMINE/CALCIUM BMB 1 EACH POWD.PACK PO SCH ×2 (08:57→16:57)
[2022-04-15] MEDS: THIAMINE HCL 100 MG TABLET PO SCH (08:57)
[2022-04-15] MEDS: FOLIC ACID 1 MG TABLET PO SCH (08:57)
[2022-04-15] MEDS: risperiDONE 0.5 MG TABLET PO SCH ×3 (08:57→16:57)
[2022-04-15] MEDS: LISINOPRIL 20 MG TABLET PO SCH (08:57)
[2022-04-15] MEDS: LORAZEPAM 0.5 MG TABLET PO PRN ×2 (13:18→16:57)
[2022-04-15 15:52] VITALS: BP 119/77
[2022-04-15 19:55] VITALS: BP 100/73
[2022-04-15] MEDS: GABAPENTIN 300 MG CAPSULE PO SCH (20:23)
[2022-04-16] MEDS: LORAZEPAM 0.5 MG TABLET PO PRN ×3 (03:26→17:49)
[2022-04-16 07:30] VITALS: BP 107/63
[2022-04-16] MEDS: NICOTINE 21 MG/24HR PATCH TD SCH (08:53)
[2022-04-16] MEDS: LISINOPRIL 20 MG TABLET PO SCH (08:53)
[2022-04-16] MEDS: THIAMINE HCL 100 MG TABLET PO SCH (08:53)
[2022-04-16] MEDS: risperiDONE 0.5 MG TABLET PO SCH (08:53)
[2022-04-16] MEDS: FOLIC ACID 1 MG TABLET PO SCH (08:53)
[2022-04-16] MEDS: levETIRAcetam 500 MG TABLET PO SCH ×2 (08:54→20:30)
[2022-04-16] MEDS: GABAPENTIN 100 MG CAPSULE PO SCH (08:54)
[2022-04-16] MEDS: ARGININE/GLUTAMINE/CALCIUM BMB 1 EACH POWD.PACK PO SCH ×2 (08:55→16:18)
[2022-04-16] MEDS ORDERED: GABAPENTIN 300 MG CAPSULE PO ONE (10:00)
[2022-04-16] MEDS ORDERED: risperiDONE 0.5 MG TABLET PO SCH (13:00)
[2022-04-16] MEDS: risperiDONE 1 MG TABLET PO SCH ×2 (13:16→16:16)
[2022-04-16 16:05] VITALS: BP 105/73
[2022-04-16] MEDS: GABAPENTIN 300 MG CAPSULE PO SCH ×2 (16:16→20:30)
[2022-04-16] MEDS ORDERED: GABAPENTIN 100 MG CAPSULE PO SCH (17:00)
[2022-04-16 20:01] VITALS: BP 110/66
[2022-04-17] MEDS: LORAZEPAM 0.5 MG TABLET PO PRN ×3 (01:44→14:35)
[2022-04-17 07:27] LABS: HEMATOCRIT 40.1 % (36.7-47.1); MEAN CORPUSCULAR HEMOGLOBIN 32.1 uug (23.8-33.4); MEAN CORPUSCULAR VOLUME 96.1 fL (73.0-96.2); PLATELET COUNT (AUTO) 224 K/uL (152-348)
[2022-04-17 07:39] VITALS: BP 105/66
[2022-04-17 08:00] LABS: THYROID STIMULATING HORMONE 3.777 mIU/mL (0.358-3.740)
[2022-04-17 08:15] LABS: BILIRUBIN,TOTAL 0.2 mg/dL (0.2-1.0); CREATININE 1.6 mg/dL (0.6-1.3); MAGNESIUM 2.2 mg/dL (1.8-2.4); PHOSPHOROUS 4.8 mg/dL (2.5-4.9); POTASSIUM 5.4 mmol/L (3.5-5.1); TOTAL PROTEIN, SERUM 7.4 g/dL (6.4-8.2)
[2022-04-17] MEDS: LISINOPRIL 20 MG TABLET PO SCH (08:40)
[2022-04-17] MEDS: risperiDONE 1 MG TABLET PO SCH ×3 (08:40→17:07)
[2022-04-17] MEDS: GABAPENTIN 300 MG CAPSULE PO SCH ×3 (08:40→20:25)
[2022-04-17] MEDS: THIAMINE HCL 100 MG TABLET PO SCH (08:40)
[2022-04-17] MEDS: levETIRAcetam 500 MG TABLET PO SCH ×2 (08:41→20:25)
[2022-04-17] MEDS: NICOTINE 14 MG/24HR PATCH TD SCH (08:42)
[2022-04-17] MEDS: FOLIC ACID 1 MG TABLET PO SCH (08:42)
[2022-04-17] MEDS: ARGININE/GLUTAMINE/CALCIUM BMB 1 EACH POWD.PACK PO SCH ×2 (08:45→17:00)
[2022-04-17] MEDS ORDERED: SODIUM POLYSTYRENE SULFONATE 15 G/60 ML LIQUID UDC PO ONE (11:30)
[2022-04-17 17:02] VITALS: BP 98/70
[2022-04-17 19:46] VITALS: BP 101/68
[2022-04-17] MEDS: TEMAZEPAM 7.5 MG CAPSULE PO PRN (21:01)
[2022-04-18 07:24] LABS: CREATININE 1.4 mg/dL (0.6-1.3); POTASSIUM 5.3 mmol/L (3.5-5.1)
[2022-04-18 07:41] VITALS: BP 115/78
[2022-04-18] MEDS: levETIRAcetam 500 MG TABLET PO SCH ×2 (08:39→08:57)
[2022-04-18] MEDS: GABAPENTIN 300 MG CAPSULE PO SCH ×3 (08:39→20:07)
[2022-04-18] MEDS: risperiDONE 1 MG TABLET PO SCH ×4 (08:39→20:06)
[2022-04-18] MEDS: LISINOPRIL 20 MG TABLET PO SCH (08:40)
[2022-04-18] MEDS: FOLIC ACID 1 MG TABLET PO SCH (08:40)
[2022-04-18] MEDS: ARGININE/GLUTAMINE/CALCIUM BMB 1 EACH POWD.PACK PO SCH ×2 (08:40→16:38)
[2022-04-18] MEDS: NICOTINE 14 MG/24HR PATCH TD SCH (08:41)
[2022-04-18] MEDS: THIAMINE HCL 100 MG TABLET PO SCH (09:01)
[2022-04-18] MEDS: LORAZEPAM 0.5 MG TABLET PO PRN (11:42)
[2022-04-18 16:56] VITALS: BP 117/75
[2022-04-18 19:53] VITALS: BP 107/70
[2022-04-19] MEDS: LORAZEPAM 0.5 MG TABLET PO PRN ×2 (02:35→11:58)
[2022-04-19 07:32] VITALS: BP 111/77
[2022-04-19] MEDS: risperiDONE 1 MG TABLET PO SCH ×4 (08:17→20:48)
[2022-04-19] MEDS: FOLIC ACID 1 MG TABLET PO SCH (08:17)
[2022-04-19] MEDS: LISINOPRIL 20 MG TABLET PO SCH (08:17)
[2022-04-19] MEDS: NICOTINE 14 MG/24HR PATCH TD SCH (08:17)
[2022-04-19] MEDS: THIAMINE HCL 100 MG TABLET PO SCH (08:18)
[2022-04-19] MEDS: ARGININE/GLUTAMINE/CALCIUM BMB 1 EACH POWD.PACK PO SCH ×2 (08:18→16:22)
[2022-04-19] MEDS: GABAPENTIN 300 MG CAPSULE PO SCH ×3 (08:18→20:47)
[2022-04-19] MEDS: levETIRAcetam 500 MG TABLET PO SCH ×2 (08:18→20:48)
[2022-04-19 16:01] VITALS: BP 105/72
[2022-04-19 19:40] VITALS: BP 100/57
[2022-04-20] MEDS: LORAZEPAM 0.5 MG TABLET PO PRN ×2 (04:13→12:17)
[2022-04-20 07:54] VITALS: BP 118/82
[2022-04-20] MEDS: GABAPENTIN 300 MG CAPSULE PO SCH ×3 (08:18→20:57)
[2022-04-20] MEDS: levETIRAcetam 500 MG TABLET PO SCH ×2 (08:19→20:57)
[2022-04-20] MEDS: risperiDONE 1 MG TABLET PO SCH ×4 (08:19→20:57)
[2022-04-20] MEDS: THIAMINE HCL 100 MG TABLET PO SCH (08:20)
[2022-04-20] MEDS: FOLIC ACID 1 MG TABLET PO SCH (08:20)
[2022-04-20] MEDS: LISINOPRIL 20 MG TABLET PO SCH (08:20)
[2022-04-20] MEDS: NICOTINE 14 MG/24HR PATCH TD SCH (08:21)
[2022-04-20] MEDS: ARGININE/GLUTAMINE/CALCIUM BMB 1 EACH POWD.PACK PO SCH ×2 (08:22→16:28)
[2022-04-20 15:28] VITALS: BP 108/67
[2022-04-20 19:50] VITALS: BP 99/51
[2022-04-21] MEDS: TEMAZEPAM 7.5 MG CAPSULE PO PRN (02:36)
[2022-04-21 07:48] LABS: HEMATOCRIT 38.1 % (36.7-47.1); MEAN CORPUSCULAR HEMOGLOBIN 32.3 uug (23.8-33.4); MEAN CORPUSCULAR VOLUME 95.9 fL (73.0-96.2); PLATELET COUNT (AUTO) 198 K/uL (152-348)
[2022-04-21 08:02] LABS: BILIRUBIN,TOTAL 0.2 mg/dL (0.2-1.0); CREATININE 1.1 mg/dL (0.6-1.3); PHOSPHOROUS 4.5 mg/dL (2.5-4.9); POTASSIUM 4.8 mmol/L (3.5-5.1); TOTAL PROTEIN, SERUM 6.9 g/dL (6.4-8.2)
[2022-04-21 08:13] VITALS: BP 102/72
[2022-04-21] MEDS: NICOTINE 14 MG/24HR PATCH TD SCH (08:46)
[2022-04-21] MEDS: levETIRAcetam 500 MG TABLET PO SCH ×2 (08:46→20:30)
[2022-04-21] MEDS: THIAMINE HCL 100 MG TABLET PO SCH (08:46)
[2022-04-21] MEDS: FOLIC ACID 1 MG TABLET PO SCH (08:46)
[2022-04-21] MEDS: risperiDONE 1 MG TABLET PO SCH ×4 (08:46→20:30)
[2022-04-21] MEDS: GABAPENTIN 300 MG CAPSULE PO SCH ×3 (08:46→20:30)
[2022-04-21] MEDS: ARGININE/GLUTAMINE/CALCIUM BMB 1 EACH POWD.PACK PO SCH ×2 (08:47→17:00)
[2022-04-21] MEDS: LORAZEPAM 0.5 MG TABLET PO PRN (14:48)
[2022-04-21 15:57] VITALS: BP 118/83
[2022-04-21 19:31] VITALS: BP 91/58
[2022-04-21] MEDS: ACETAMINOPHEN 325 MG TABLET PO PRN (20:48)
[2022-04-22] MEDS: LORAZEPAM 0.5 MG TABLET PO PRN (01:30)
[2022-04-22 07:33] VITALS: BP 104/74
[2022-04-22] MEDS: risperiDONE 1 MG TABLET PO SCH ×2 (08:35→12:56)
[2022-04-22] MEDS: NICOTINE 14 MG/24HR PATCH TD SCH (08:35)
[2022-04-22] MEDS: levETIRAcetam 500 MG TABLET PO SCH (08:35)
[2022-04-22] MEDS: THIAMINE HCL 100 MG TABLET PO SCH (08:35)
[2022-04-22] MEDS: FOLIC ACID 1 MG TABLET PO SCH (08:35)
[2022-04-22] MEDS: GABAPENTIN 300 MG CAPSULE PO SCH (08:35)
[2022-04-22] MEDS: ARGININE/GLUTAMINE/CALCIUM BMB 1 EACH POWD.PACK PO SCH (08:36)
[2022-04-22 12:07] LABS: A/G RATIO 0.9 (0.7-1.7); ALBUMIN 3.2 g/dL (2.9-4.4); ALPHA-1-GLOBULIN 0.2 g/dL (0.0-0.4); BETA GLOBULIN 1.1 g/dL (0.7-1.3); GLOBULIN, TOTAL 3.4 g/dL (2.2-3.9); M-SPIKE Not Observed g/dL (Not Observed)
== END 2022-04-22 14:45 | DRG 885 ==
LOC: ER 05:12 → GPS 09:18
PROVIDERS: ADMIT Psychiatry & Neurology Psychosomatic Medicine; ATTEND Registered Nurse
DX: F25.9 Schizoaffective disorder, unspecified (principal); N17.0 Acute kidney failure with tubular necrosis; R45.851 Suicidal ideations; F10.239 Alcohol dependence with withdrawal, unspecified; D69.6 Thrombocytopenia, unspecified; F31.9 Bipolar disorder, unspecified; E87.5 Hyperkalemia; G40.909 Epilepsy, unspecified, not intractable, without status epilepticus; F41.9 Anxiety disorder, unspecified; G47.00 Insomnia, unspecified; G62.9 Polyneuropathy, unspecified; I10 Essential (primary) hypertension; Z59.00 Homelessness unspecified; Z79.899 Other long term (current) drug therapy; Z87.891 Personal history of nicotine dependence; Z20.822 Contact with and (suspected) exposure to COVID-19; Z87.820 Personal history of traumatic brain injury; Z73.6 Limitation of activities due to disability; Z86.19 Personal history of other infectious and parasitic diseases; F15.10 Other stimulant abuse, uncomplicated; Y90.0 Blood alcohol level of less than 20 mg/100 ml
CPT/HCPCS: 36415; 80299; 83735; 83970; 84100; 84155; 84165; 84443; 85025; A4663; G0480